=== PATIENT | male | born 1975 | race Caucasian/White ===

== ENCOUNTER 2023-11-04 09:51 | Emergency (ER) | payer OTHER ==
[~2023-11-04] VITALS: Ht 177.8 cm; Wt 104.3 kg
[2023-11-04] MEDS ORDERED: CYCLOBENZAPRINE10 MG PO (12:07)
[2023-11-04] MEDS ORDERED: NAPROSYN EC375 MG PO (12:07)
== END 2023-11-04 12:25 | disposition home or self-care (01) ==
LOC: ED 09:51
DX: S46.911A Strain of unspecified muscle, fascia and tendon at shoulder and upper arm level, right arm, initial encounter (principal); W17.89XA Other fall from one level to another, initial encounter; Y93.89 Activity, other specified; Y92.89 Other specified places as the place of occurrence of the external cause; Y99.8 Other external cause status